=== PATIENT | female | born 2000 | race Caucasian/White ===

== ENCOUNTER 2020-10-23 14:33 | Emergency (ER) | payer OTHER ==
[2020-10-23 16:52] LABS: HEMOGLOBIN 13.1 gm/dl (12.3-15.3); RED BLOOD COUNT 5.06 M/UL (4.00-5.10); WHITE BLOOD COUNT 10.8 K/UL (4.5-11.0)
[2020-10-23 17:21] LABS: BUN/CREATININE RATIO 12 (0-10)
== END 2020-10-23 18:55 | disposition home or self-care (01) ==
LOC: ER1 14:33
PROVIDERS: Emergency Medicine
DX: R25.8 Other abnormal involuntary movements (principal)
CPT/HCPCS: 36415; 70450; 71045; 80053; 81001; 84703; 85025; 99285

== ENCOUNTER → 2021-01-21 | Outpatient (CLI) | payer OTHER | LOC: EMI 12:48 | DX: R56.9 Unspecified convulsions (principal) | CPT/HCPCS: 70551 ==